=== PATIENT | female | born 1945 | race Caucasian/White ===

== ENCOUNTER 2018-05-08 15:07 | Emergency (ER) | payer OTHER ==
[~2018-05-08] VITALS: Ht 170.2 cm; Wt 70.0 kg
[2018-05-08] MEDS ORDERED: SOD CHLORIDE 0.9% 1,000 ML IV STA (15:23)
[2018-05-08 15:29] VITALS: Ht 170.2 cm; Wt 70.0 kg
--- NOTE | 2018-05-08 15:39 | ERD ---
ER Documentation Chief Complaint Chief Complaint BIB RA FOR EVAL OF SYNCOPAL EPISODE AT [facility]. NO INJURY. A&OX4 ON ARRIVAL HPI This is a 72-year-old woman brought in by EMS after syncopal episode while standing in a [facility] line for about 30 minutes. She states she has a recent history of paroxysmal atrial contractions and her PMD prescribed calcium channel blockers that she used for a few weeks but was told to discontinue its use about 3 weeks ago, so she is no longer on beta-vianca or calcium channel vianca therapy and does not use any medication for dysrhythmia. Patient denies fevers or chills, no cough, no calf or leg swelling, no headache or blurry vision. Patient had no seizure activity at the scene and was transported here by EMS without further complications ROS All systems reviewed and are negative except as per history of present illness. Medications Home Meds Active Scripts Ciprofloxacin Hcl* (Ciprofloxacin Hcl*) 500 Mg Tablet, 500 MG PO BID for 5 Days, TAB Prov:LITZY MCLAUGHLIN MD 05/08/18 Reported Medications Benazepril Hcl* (Benazepril Hcl*) 20 Mg Tablet, 20 MG PO BID, #60 TAB 05/08/18 Atorvastatin Calcium (Atorvastatin Calcium) 10 Mg Tablet, 5 MG PO QHS, #30 TAB 05/08/18 Ezetimibe* (Zetia*) 10 Mg Tablet, 10 MG PO HS, TAB 05/08/18 Omeprazole* (Omeprazole*) 40 Mg Capsule.dr, 40 MG PO DAILY, #30 CAP 05/08/18 Allergies Allergies: Coded Allergies: Iodinated Contrast- Oral and IV Dye (Verified Allergy, Unknown, 05/08/18) OLD FASHIONED,THE NEW, IS OKAY Penicillins (Unverified Allergy, Unknown, 05/08/18) aspirin (Unverified Allergy, Unknown, 05/08/18) diltiazem (Unverified Allergy, Unknown, 05/08/18) gentamicin (Unverified Allergy, Unknown, 05/08/18) vancomycin (Unverified Allergy, Unknown, 05/08/18) PMhx/Soc Hypertension, FmHx Family History: No diabetes Physical Exam Vitals Vital Signs Date Temp Pulse Resp B/P (MAP) Pulse Ox O2 O2 Flow FiO2 Time Delivery Rate 05/08/18 97.5 69 17 172/72 99 15:29 (105) Physical Exam Const: No acute distress, afebrile Head: Atraumatic Eyes: Normal Conjunctiva ENT: Normal External Ears, Nose and Mouth. Neck: Full range of motion. No meningismus. Resp: Clear to auscultation bilaterally Cardio: Regular rate and rhythm, no murmurs Abd: Soft, non tender, non distended. Normal bowel sounds Skin: No petechiae or rashes Back: No midline or flank tenderness Ext: No cyanosis, or edema Neur: Awake and alert x3, no focal deficits or facial asymmetry Psych: Normal Mood and Affect Result Diagram: 05/08/18 1539 05/08/18 1539 Results 24 hrs Laboratory Tests Test 05/08/18 15:39 05/08/18 16:07 White Blood Count 6.1 10^3/ul Red Blood Count 4.45 10^6/ul Hemoglobin 13.2 g/dl Hematocrit 41.6 % Mean Corpuscular Volume 93.5 fl Mean Corpuscular Hemoglobin 29.7 pg Mean Corpuscular Hemoglobin Concent 31.7 g/dl Red Cell Distribution Width 13.3 % Platelet Count 140 10^3/UL Mean Platelet Volume 13.3 fl Immature Granulocytes % 0.200 % Neutrophils % 71.2 % Lymphocytes % 20.4 % Monocytes % 6.6 % Eosinophils % 0.8 % Basophils % 0.8 % Nucleated Red Blood Cells % 0.0 /100WBC Immature Granulocytes # 0.010 10^3/ul Neutrophils # 4.3 10^3/ul Lymphocytes # 1.2 10^3/ul Monocytes # 0.4 10^3/ul Eosinophils # 0.1 10^3/ul Basophils # 0.1 10^3/ul Nucleated Red Blood Cells # 0.0 10^3/ul Sodium Level 141 mmol/L Potassium Level 3.9 mmol/L Chloride Level 102 mmol/L Carbon Dioxide Level 27 mmol/L Anion Gap 12 Blood Urea Nitrogen 14 mg/dl Creatinine 0.76 mg/dl Est Glomerular Filtrat Rate mL/min mL/min Glucose Level 112 mg/dl Calcium Level 9.4 mg/dl Total Bilirubin 0.5 mg/dl Direct Bilirubin 0.00 mg/dl Indirect Bilirubin 0.5 mg/dl Aspartate Amino Transf (AST/SGOT) 30 IU/L Alanine Aminotransferase (ALT/SGPT) 16 IU/L Alkaline Phosphatase 63 IU/L Troponin I < 0.012 ng/ml Total Protein 7.3 g/dl Albumin 4.2 g/dl Globulin 3.10 g/dl Albumin/Globulin Ratio 1.35 Lipase 75 U/L Urine Color YELLOW Urine Clarity SLIGHTLY CLOUDY Urine pH 6.0 Urine Specific [place] 1.014 Urine Ketones NEGATIVE mg/dL Urine Nitrite NEGATIVE mg/dL Urine Bilirubin NEGATIVE mg/dL Urine Urobilinogen NEGATIVE mg/dL Urine Leukocyte Esterase NEGATIVE Shanika/ul Urine Microscopic RBC 1 /HPF Urine Microscopic WBC 3 /HPF Urine Bacteria FEW /HPF Urine Mucus MODERATE /HPF Urine Hemoglobin NEGATIVE mg/dL Urine Glucose NEGATIVE mg/dL Urine Total Protein NEGATIVE mg/dl Current Medications Medications Dose Sig/Fortino Start Time Status Last (Trade) Ordered Route PRN Stop Time Admin Dose Reason Admin Sodium 1,000 ml @ Q1H STAT 05/08/18 DC 05/08/18 Chloride 1,000 mls/hr IV 15:23 15:57 05/08/18 16:22 Procedures/MDM IV line was established patient was placed on case monitor rhythm strip revealed a sinus rhythm at about 80 bpm with upright P and T waves. Patient was afebrile One AP view of the chest performed, read by me reveals no acute infiltrates, normal mediastinum, sharp costophrenic and cardiac borders, no air under the diaphragm. Otherwise unremarkable chest x-ray. I administered 1 L normal saline IV EKG performed, read by me revealed normal sinus rhythm at 71 bpm, normal axis, narrow QRS complex, no concerning ST elevations or depressions noted. CBC was normal, electrolytes did reveal mild dehydration with an increased BUN/creatinine ratio, liver function tests normal, troponin negative, urinalysis negative for infection. Patient feels much better and was rehydrated here, vital signs are normal and she will be discharged, I did give her a prescription for ciprofloxacin to use if she develops any genitourinary symptoms in the next few days. Differential diagnoses considered, included but not limited to acute coronary syndrome, pulmonary embolism, aortic dissection, abdominal aortic aneurysm, sepsis, stroke, meningitis, encephalitis, pneumonia, appendicitis, cho lecystitis, bowel obstruction, pyelonephritis, nephrolithiasis, cystitis, as well as metabolic, hematologic, and electrolyte abnormalities. As well as abscess, cellulitis, fractures, and dislocations. Patient feels much better at this time, and vital signs are normal, symptoms have improved. I did give strict instructions to return to the ED if symptoms continue or worsen, patient will otherwise follow-up with primary care physician. Patient understood instructions and agreed to plan. Disclaimer: Inadvertent spelling and grammatical errors are likely due to EHR/dictation software use and do not reflect on the overall quality of patient care. Also, please note that the electronic time recorded on this note does not necessarily reflect the actual time of the patient encounter. Departure Diagnosis: Primary Impression: Syncope Syncope type: unspecified Qualified Codes: R55 - Syncope and collapse Additional Impression: Acute dehydration Condition: LITZY Webb MD May 08, 2018 15:39
[2018-05-08] MEDS ORDERED: OMEP40CA6 PO (16:49)
[2018-05-08] MEDS ORDERED: EZET10TA31 PO (16:49)
[2018-05-08] MEDS ORDERED: ATOR10TA65 PO (16:49)
[2018-05-08] MEDS ORDERED: BENA20TA4 PO (16:50)
[2018-05-08] MEDS ORDERED: CIPR500T4 PO (17:01)
[2018-05-08 17:55] VITALS: BP 145/82; PULSE 72; RESP 16
== END 2018-05-08 17:55 | disposition home or self-care (01) ==
LOC: E/R 15:07
DX: R55 Syncope and collapse (principal); E86.0 Dehydration
CPT/HCPCS: 36415; 71045; 80053; 81001; 81003; 83690; 84484; 85025; 93005; 99285; J7030